=== PATIENT | male | born 1945 | race Hispanic/Latino ===

== ENCOUNTER 2017-11-19 06:27 | Day surgery (SDC) | payer MEDICARE, BC ==
[2017-11-18 12:17] VITALS: BMI 26.4
[~2017-11-19 06:27] MED LIST: Cyclopentolate 1% Opth Drop 2 ML BOT FS SCH; EPINEPHrine 0.3 MG, Dextrose 50% 3 ML in Ophthalmic Irrigation Solution 500 ML FS SCH; Phenylephrine 2.5% Ophth Soln 5 ML BOT FS SCH
[2017-11-19] MEDS ORDERED: Phenylephrine 2.5% Ophth Soln 5 ML BOT ONE (07:07)
[2017-11-19] MEDS ORDERED: Cyclopentolate 1% Opth Drop 2 ML BOT ONE (07:07)
[2017-11-19] MEDS ORDERED: Midazolam HCl 2 mg/2 ml Vial ONE (08:10)
[2017-11-19] MEDS ORDERED: Ondansetron HCl/PF 4 MG/2 ML Vial ONE ×2 (08:10→17:03)
[2017-11-19] MEDS ORDERED: Diprivan 20 ML ONE (08:10)
--- NOTE | 2017-11-19 09:09 | OP ---
DATE OF PROCEDURE: 11/19/2017 PREOPERATIVE DIAGNOSIS: Diabetic retinopathy and vitreous hemorrhage, left eye. POSTOPERATIVE DIAGNOSIS: Diabetic retinopathy and vitreous hemorrhage, left eye. PROCEDURE: Pars plana vitrectomy and membrane peel, panretinal photocoagulation, left eye. SURGEON: Dr. Wayne Crawford ANESTHESIA: Local with monitored anesthesia care. PROCEDURE IN DETAIL: The patient was identified in the preoperative holding area. Appropriate infor med consent for the planned surgical procedure on the left eye had been obtained. The patient was tr ansported to the operative suite where appropriate cardiopulmonary monitoring was established. Local anesthesia was obtained using retrobulbar and modified Van Lint lid block using 50/50 mixture of 4% lidocaine and 0.75% bupivacaine. The patient was prepped and draped in the usual sterile manner for ophthalmic surgery on the left eye. Lid speculum was placed in the left eye. The 25-gauge trocars w ere placed in conjunctiva and sclera supratemporally, inferotemporally, and supranasally. Infusion l ine was placed inferotemporally. Light pipe and vitreous cutter were inserted into the eye. Core of vitrectomy was performed. Posterior hyaloid membranes were noticed on the posterior hyaloid face. These were elevated using end-gripping forceps and peeled across the macula without complications. P an retinal photocoagulation was placed into all non-macular areas of the retina. No holes, breaks or tears were identified. Trocars were removed and eye was noted to retain pressure well. Retrobulbar Kenalog and subconjunctival Ancef were placed. Atropine and antibiotic ointment were placed, and th e eye was patched and shielded. The patient was taken to the postoperative recovery unit in good con dition having suffered no immediate perioperative complications. DISCHARGE INSTRUCTIONS: The patient was instructed to keep patch and shield on, avoid lifting or akila ding, and follow up in the morning with Dr. Crawford.
[2017-11-19] MEDS ORDERED: Propofol 200 MG/20 ML VIAL ONE (17:03)
== END 2017-11-19 09:33 | disposition home or self-care (01) ==
LOC: SDC 06:27
PROVIDERS: ATTEND Ophthalmology Retina Specialist
PROC: 08B53ZZ Excision of Left Vitreous, Percutaneous Approach (ICD-10-PCS; principal; 2017-11-19)
PROC: 08QF3ZZ Repair Left Retina, Percutaneous Approach (ICD-10-PCS; 2017-11-19)
PROC: 08NF3ZZ Release Left Retina, Percutaneous Approach (ICD-10-PCS; 2017-11-19)
DX: E11.319 Type 2 diabetes mellitus with unspecified diabetic retinopathy without macular edema (principal); H43.12 Vitreous hemorrhage, left eye; I25.10 Atherosclerotic heart disease of native coronary artery without angina pectoris; E78.5 Hyperlipidemia, unspecified; I11.0 Hypertensive heart disease with heart failure; I50.9 Heart failure, unspecified; I25.2 Old myocardial infarction; I73.9 Peripheral vascular disease, unspecified; Z88.5 Allergy status to narcotic agent; Z88.8 Allergy status to other drugs, medicaments and biological substances; Z79.82 Long term (current) use of aspirin; Z79.84 Long term (current) use of oral hypoglycemic drugs; Z79.899 Other long term (current) drug therapy
CPT/HCPCS: J0171; J2250; J2405; J2704

== ENCOUNTER 2019-02-07 12:06 | Outpatient (CLI) | payer MEDICARE, BC ==
--- NOTE | 2019-02-07 13:05 | ULT ---
RENAL SONOGRAM: HISTORY: Renal insufficiency. FINDINGS: The right kidney is 10.3 cm in length and has a normal appearance without hydronephrosis. The left k idney is 11.1 cm without hydronephrosis. A lobular, exophytic cyst from the mid portion of the kidne y measures up to 1.1 cm. The urinary bladder has a normal appearance. IMPRESSION: 1. No evidence of urinary tract obstruction. 2. Small left renal cyst. POS: CET
== END 2019-02-07 12:07 | disposition home or self-care (01) ==
LOC: BICULT 12:06
PROVIDERS: ATTEND Internal Medicine Nephrology
DX: N18.4 Chronic kidney disease, stage 4 (severe) (principal); N28.1 Cyst of kidney, acquired
CPT/HCPCS: 76770

== ENCOUNTER 2021-10-04 02:09 | Observation (INO) | payer MEDICARE, BC ==
[2021-10-04 03:18] LABS: #Eosinphils 0.1 thou/uL (0.0-0.7); #Lymphocytes 0.9 thou/uL (1.20-3.40); #Monocytes 0.4 thou/uL (0.11-0.59); #Neutrophils 6.6 thou/uL (1.40-6.50); %Basophils 0.2 % (0.0-1.0); %Eosinophils 1.2 % (0.0-10.0); %Lymphocytes 11.6 % (21.0-51.0); %Monocytes 4.8 % (0.0-10.0); %Neutrophils 82.3 % (42.0-75.0); Hemoglobin 12.7 g/dL (14.0-18.0); Mean Corpuscular HGB CONC 32.6 g/dL (32.0-36.0); Mean Corpuscular Hemoglobin 30.6 pg (27.0-31.0); Mean Corpuscular Volume 93.9 fL (78.0-98.0); Mean Platelet Volume 8.4 fL (7.4-10.4); Platelet Count 118 thou/uL (130-400); RBC Distribution Width 13.8 % (11.5-14.5); Red Blood Cell (RBC) Count 4.15 mill/uL (4.70-6.10)
[2021-10-04 03:38] LABS: ALT (SGPT) Less than 7 U/L (8-55); AST (SGOT) 11 U/L (5-34); Albumin 3.9 g/dL (3.4-4.8); Alkaline Phosphatase 60 U/L (40-110); Anion Gap 15 mmol/L (10-20); BUN (Urea Nitrogen) 33 mg/dL (8.4-25.7); Bilirubin, Total 0.8 mg/dL (0.2-1.2); Calc. Creatinine Clearance 0 mL/min (70-130); Calcium 10.3 mg/dL (7.8-10.44); Carbon Dioxide 23 mmol/L (23-31); Chloride 105 mmol/L (98-107); Glucose 189 mg/dL (83-110); Platelet Morphology Comment Appears Decreased; Potassium 4.1 mmol/L (3.5-5.1); Protein, Total 6.9 g/dL (5.8-8.1); RBC Morphology NORMAL; Sodium 139 mmol/L (136-145)
[2021-10-04 03:51] LABS: Bacteria/HPF None Seen HPF (None Seen); Bilirubin Negative (Negative); Blood, Urine Negative (Negative); Clarity Clear (Clear); Glucose, Urine (Dipstick) 100 mg/dL (Negative); Ketone, Urine Trace mg/dL (Negative); Leukocyte Negative Leu/uL (Negative); Nitrite Negative (Negative); Protein, Urine (Dipstick) 200 mg/dL (Neg-Trace); RBC/HPF 0-3 HPF (0-3); Specific Gravity, Urine 1.018 (1.002-1.036); Squamous Epithelial None Seen HPF (0-3); Urobilinogen Normal mg/dL (Less than 2); WBC/HPF 0-3 HPF (0-3); pH, Urine 5.5 (5.0-9.0)
[2021-10-04 04:38] LABS: SARS-CoV-2 NAA Rapid Test Not Detected (NotDetected)
[2021-10-04] MEDS ORDERED: Ondansetron PF 4 MG/2 ML Vial IVP PRN (05:03)
[2021-10-04] MEDS ORDERED: Ondansetron ODT 4 MG TAB PO PRN (05:03)
[2021-10-04] MEDS ORDERED: Dextrose 50% Abboject 50 ML SYRINGE SLOW IVP PRN (05:03)
[2021-10-04] MEDS ORDERED: HumaLOG 300 UNITS/3 ML VIAL SC PRN ×2 (05:03)
[2021-10-04] MEDS ORDERED: Acetaminophen 325 MG TAB PO PRN (05:03)
[2021-10-04] MEDS ORDERED: Dextrose 5% in Water 1,000 ML IV PRN (05:03)
[2021-10-04] MEDS ORDERED: Acetaminophen 650 MG Suppository PR PRN (05:03)
[2021-10-04] MEDS ORDERED: Labetalol HCl 100 MG/20 ML VIAL SLOW IVP PRN (05:07)
[2021-10-04] MEDS ORDERED: Aspirin 81 mg Enteric Coated Tablet PO SCH (09:00)
[2021-10-04] MEDS: hydrALAZINE 25 MG TAB PO SCH ×2 (16:19→21:24)
[2021-10-04] MEDS ORDERED: Atorvastatin Calcium 40 MG TAB PO SCH (21:00)
[2021-10-04] MEDS: Carvedilol 25 MG TAB PO SCH (21:24)
[2021-10-05 04:47] LABS: #Lymphocytes 1.2 thou/uL (1.20-3.40); #Monocytes 0.4 thou/uL (0.11-0.59); #Neutrophils 5.3 thou/uL (1.40-6.50); %Basophils 0.4 % (0.0-1.0); %Eosinophils 0.6 % (0.0-10.0); %Lymphocytes 17.5 % (21.0-51.0); %Monocytes 5.4 % (0.0-10.0); %Neutrophils 76.1 % (42.0-75.0); Hemoglobin 11.9 g/dL (14.0-18.0); Mean Corpuscular HGB CONC 33.5 g/dL (32.0-36.0); Mean Corpuscular Hemoglobin 30.8 pg (27.0-31.0); Mean Platelet Volume 8.5 fL (7.4-10.4); Platelet Count 115 thou/uL (130-400); RBC Distribution Width 14.2 % (11.5-14.5); Red Blood Cell (RBC) Count 3.87 mill/uL (4.70-6.10)
[2021-10-05 05:09] LABS: Anion Gap 12 mmol/L (10-20); BUN (Urea Nitrogen) 32 mg/dL (8.4-25.7); Calc. Creatinine Clearance 18 mL/min (70-130); Calcium 9.9 mg/dL (7.8-10.44); Carbon Dioxide 25 mmol/L (23-31); Cardiac Risk 3.3 (Less than 4.5); Chloride 104 mmol/L (98-107); Cholesterol 118 mg/dl (< 200 Desired); Glucose 161 mg/dL (83-110); HDL Cholesterol 36 mg/dL (>60 Neg Risk); LDL Cholesterol, Calculated 67 mg/dL; Potassium 4.1 mmol/L (3.5-5.1); Sodium 137 mmol/L (136-145); Triglycerides 77 mg/dL (Less than 150)
[2021-10-05] MEDS ORDERED: Ferrous Sulfate 325 MG TAB PO SCH (08:00)
[2021-10-05] MEDS: hydrALAZINE 25 MG TAB PO SCH ×2 (08:31→14:50)
[2021-10-05] MEDS: Carvedilol 25 MG TAB PO SCH (08:32)
[2021-10-05] MEDS ORDERED: Aspirin 81 mg Enteric Coated Tablet PO SCH (09:00)
[2021-10-05] MEDS ORDERED: Alogliptin 6.25 MG TAB PO SCH (09:00)
[2021-10-05] MEDS ORDERED: Ascorbic Acid 500 mg Chewable Tablet PO SCH (09:00)
[2021-10-05] MEDS ORDERED: Amlodipine 5 MG TAB PO SCH (09:00)
[2021-10-05 11:35] VITALS: TEMP 98.6
[2021-10-05 14:51] VITALS: BP 162/70
== END 2021-10-05 15:36 | disposition home or self-care (01) ==
LOC: ERS 02:09 → 2NO 04:39
PROVIDERS: ADMIT Student in an Organized Health Care Education/Training Program; ATTEND Family Medicine
DX: R51.9 Headache, unspecified (principal); R42 Dizziness and giddiness; R41.82 Altered mental status, unspecified; I25.10 Atherosclerotic heart disease of native coronary artery without angina pectoris; I13.0 Hypertensive heart and chronic kidney disease with heart failure and stage 1 through stage 4 chronic kidney disease, or unspecified chronic kidney disease; E11.22 Type 2 diabetes mellitus with diabetic chronic kidney disease; N18.30 Chronic kidney disease, stage 3 unspecified; I50.23 Acute on chronic systolic (congestive) heart failure; D63.1 Anemia in chronic kidney disease; I70.269 Atherosclerosis of native arteries of extremities with gangrene, unspecified extremity; I25.2 Old myocardial infarction; I42.9 Cardiomyopathy, unspecified; E78.00 Pure hypercholesterolemia, unspecified; E78.5 Hyperlipidemia, unspecified; I08.1 Rheumatic disorders of both mitral and tricuspid valves; J32.0 Chronic maxillary sinusitis; Z79.82 Long term (current) use of aspirin; Z79.84 Long term (current) use of oral hypoglycemic drugs; Z79.899 Other long term (current) drug therapy; Z88.5 Allergy status to narcotic agent; Z95.1 Presence of aortocoronary bypass graft; Z95.810 Presence of automatic (implantable) cardiac defibrillator; Z89.511 Acquired absence of right leg below knee; Z89.512 Acquired absence of left leg below knee; Z20.822 Contact with and (suspected) exposure to COVID-19
CPT/HCPCS: 70450 ×2; 71045; 80048; 80053; 80061; 82962 ×2; 85025 ×2; 87086; 93005; 93306; 93880; 95712; 95819; 95957; 97139 ×4; U0002; 36415; 36416; 81003; 81015; 96374; G0378; J1815

== ENCOUNTER 2023-01-16 09:39 | Inpatient (IN) | payer MEDICARE, BC ==
[2023-01-16 10:04] LABS: #Basophils 0.1 thou/uL (0.0-0.2); #Lymphocytes 1.3 thou/uL (1.20-3.40); #Monocytes 0.6 thou/uL (0.11-0.59); #Neutrophils 9.6 thou/uL (1.40-6.50); %Basophils 0.5 % (0.0-1.0); %Eosinophils 0.4 % (0.0-10.0); %Lymphocytes 10.9 % (21.0-51.0); %Monocytes 4.9 % (0.0-10.0); %Neutrophils 83.3 % (42.0-75.0); Hemoglobin 10.9 g/dL (14.0-18.0); Mean Corpuscular HGB CONC 33.6 g/dL (32.0-36.0); Mean Corpuscular Hemoglobin 33.4 pg (27.0-31.0); Mean Corpuscular Volume 99.5 fl (78.0-98.0); Mean Platelet Volume 8.8 fL (7.4-10.4); Platelet Count 123 10x3/uL (130-400); RBC Distribution Width 13.2 % (11.5-14.5); Red Blood Cell (RBC) Count 3.25 mill/uL (4.70-6.10); White Blood Cell (WBC) Count 11.6 10x3/uL (4.8-10.8)
[2023-01-16 10:30] LABS: ALT (SGPT) 9 U/L (8-55); AST (SGOT) 17 U/L (5-34); Albumin 4.3 g/dL (3.4-4.8); Alkaline Phosphatase 58 U/L (40-110); Anion Gap 19 mmol/L (10-20); BUN (Urea Nitrogen) 57 mg/dL (8.4-25.7); Bilirubin, Total 0.8 mg/dL (0.2-1.2); Calc. Creatinine Clearance 0 mL/min (70-130); Calcium 11.1 mg/dL (7.8-10.44); Carbon Dioxide 22 mmol/L (23-31); Chloride 101 mmol/L (98-107); Estimated GFR 12; Globulin 2.9 g/dL (2.4-3.5); Glucose 170 mg/dL (83-110); Protein, Total 7.2 g/dL (5.8-8.1); Sodium 138 mmol/L (136-145)
[2023-01-16] MEDS ORDERED: Ondansetron PF 4 MG/2 ML Vial ONE (10:37)
[2023-01-16 13:30] LABS: CKMB 2.3 ng/mL (0-6.6)
[2023-01-16] MEDS ORDERED: Aspirin Chewable 81 MG TAB ONE (15:02)
[2023-01-16 15:51] LABS: Bacteria/HPF 2+ HPF (None Seen); Bilirubin Negative (Negative); Blood, Urine 1+ (Negative); Clarity Clear (Clear); Glucose, Urine (Dipstick) 70 mg/dL (Negative); Ketone, Urine Negative (Negative); Leukocyte Negative Leu/uL (Negative); Nitrite Negative (Negative); Protein, Urine (Dipstick) 100 mg/dL (Neg-Trace); RBC/HPF 21-50 HPF (0-3); Specific Gravity, Urine 1.013 (1.002-1.036); Squamous Epithelial 0-3 HPF (0-3); Urobilinogen Normal mg/dL (Less than 2); WBC/HPF 0-3 HPF (0-3); pH, Urine 5.5 (5.0-9.0)
[2023-01-16 16:56] LABS: Troponin I 0.127 ng/mL (< 0.028)
[2023-01-16] MEDS ORDERED: Ondansetron PF 4 MG/2 ML Vial IVP PRN (17:27)
[2023-01-16] MEDS ORDERED: Guaifenesin DM 100-10/5 ML UDCUP PO PRN (17:27)
[2023-01-16] MEDS ORDERED: Acetaminophen 650 MG Suppository PR PRN (17:27)
[2023-01-16] MEDS ORDERED: Ondansetron ODT 4 MG TAB PO PRN (17:27)
[2023-01-16] MEDS ORDERED: Senokot S 8.6-50 MG TAB PO PRN (17:27)
[2023-01-16 17:36] VITALS: BMI 18.8
[2023-01-16] MEDS ORDERED: CEFAZOLIN 1 GM in Sodium Chloride 0.9% 100 ML IVPB SCH (18:00)
[2023-01-16] MEDS ORDERED: EPOETIN ALFA-EPBX (ESRD) 10,000 UNITS/ML VIAL SC SCH (18:15)
[2023-01-16] MEDS: Sodium Chloride 0.9% 1,000 ML IV SCH (18:33)
[2023-01-16 19:37] LABS: Troponin I 0.141 ng/mL (< 0.028)
[2023-01-16] MEDS: Famotidine 20 MG TAB PO SCH (20:07)
[2023-01-16] MEDS: Atorvastatin Calcium 40 MG TAB PO SCH (20:07)
[2023-01-16] MEDS: hydrALAZINE 25 MG TAB PO SCH (20:07)
[2023-01-16] MEDS: Tamsulosin HCl 0.4 MG CAP PO SCH (20:08)
[2023-01-16] MEDS: Heparin 5,000 UNITS/ML VIAL SC SCH (21:01)
[2023-01-16] MEDS: Acetaminophen 325 MG TAB PO PRN (22:32)
[2023-01-16] MEDS ORDERED: HumaLOG 300 UNITS/3 ML VIAL SC PRN ×2 (23:48)
[2023-01-16] MEDS ORDERED: Dextrose 5% in Water 1,000 ML IV PRN (23:48)
[2023-01-16] MEDS ORDERED: Dextrose 50% Abboject 50 ML SYRINGE SLOW IVP PRN (23:48)
[2023-01-17 04:59] LABS: #Lymphocytes 1.1 thou/uL (1.20-3.40); #Monocytes 0.9 thou/uL (0.11-0.59); #Neutrophils 9.5 thou/uL (1.40-6.50); %Basophils 0.2 % (0.0-1.0); %Eosinophils 0.1 % (0.0-10.0); %Lymphocytes 9.7 % (21.0-51.0); Hemoglobin 9.7 g/dL (14.0-18.0); Mean Corpuscular HGB CONC 34.5 g/dL (32.0-36.0); Mean Corpuscular Hemoglobin 34.8 pg (27.0-31.0); Mean Platelet Volume 9.4 fL (7.4-10.4); Platelet Count 106 10x3/uL (130-400); RBC Distribution Width 13.1 % (11.5-14.5); Red Blood Cell (RBC) Count 2.78 mill/uL (4.70-6.10); White Blood Cell (WBC) Count 11.6 10x3/uL (4.8-10.8)
[2023-01-17 05:16] LABS: Anion Gap 15 mmol/L (10-20); BUN (Urea Nitrogen) 57 mg/dL (8.4-25.7); Calc. Creatinine Clearance 9 mL/min (70-130); Carbon Dioxide 21 mmol/L (23-31); Chloride 104 mmol/L (98-107); Estimated GFR 12; Glucose 137 mg/dL (83-110); Potassium 3.8 mmol/L (3.5-5.1); Sodium 136 mmol/L (136-145)
[2023-01-17] MEDS ORDERED: Iopamidol 30 ML ONE (08:02)
[2023-01-17] MEDS ORDERED: Sodium Chloride 0.9% 0 ML ONE (08:11)
[2023-01-17] MEDS ORDERED: CEFAZOLIN 1 GM VIAL ONE (08:11)
[2023-01-17] MEDS ORDERED: fentaNYL 50 mcg/mL 1 mL Vial ONE (08:19)
[2023-01-17] MEDS ORDERED: Lidocaine 1% PF 5 ML VIAL ONE (08:32)
[2023-01-17] MEDS: Carvedilol 25 MG TAB PO SCH ×2 (10:29→17:16)
[2023-01-17] MEDS: hydrALAZINE 25 MG TAB PO SCH ×3 (10:29→20:35)
[2023-01-17] MEDS: Amlodipine 5 MG TAB PO SCH (10:30)
[2023-01-17] MEDS: Calcitriol 0.25 MCG CAP PO SCH (10:30)
[2023-01-17] MEDS: Aspirin 81 mg Enteric Coated Tablet PO SCH (10:30)
[2023-01-17] MEDS: Heparin 5,000 UNITS/ML VIAL SC SCH ×3 (10:33→20:35)
[2023-01-17] MEDS: Alogliptin 6.25 MG TAB PO SCH (10:39)
[2023-01-17] MEDS: Sodium Chloride 0.9% 1,000 ML IV SCH (12:44)
[2023-01-17] MEDS: Sodium Bicarbonate Tab 325 MG TAB PO SCH ×2 (15:13→20:34)
[2023-01-17] MEDS: Acetaminophen 325 MG TAB PO PRN (20:33)
[2023-01-17] MEDS: Famotidine 20 MG TAB PO SCH (20:34)
[2023-01-17] MEDS: Tamsulosin HCl 0.4 MG CAP PO SCH (20:34)
[2023-01-17] MEDS: Atorvastatin Calcium 40 MG TAB PO SCH (20:34)
[2023-01-18 08:52] LABS: #Eosinphils 0.1 thou/uL (0.0-0.7); #Lymphocytes 1.6 thou/uL (1.20-3.40); #Monocytes 0.7 thou/uL (0.11-0.59); #Neutrophils 4.1 thou/uL (1.40-6.50); %Basophils 0.2 % (0.0-1.0); %Lymphocytes 24.4 % (21.0-51.0); %Monocytes 10.5 % (0.0-10.0); %Neutrophils 63.9 % (42.0-75.0); Hemoglobin 8.7 g/dL (14.0-18.0); Mean Corpuscular HGB CONC 35.4 g/dL (32.0-36.0); Mean Corpuscular Hemoglobin 35.6 pg (27.0-31.0); Mean Platelet Volume 10.2 fL (7.4-10.4); Platelet Count 83 10x3/uL (130-400); RBC Distribution Width 12.8 % (11.5-14.5); Red Blood Cell (RBC) Count 2.45 mill/uL (4.70-6.10); White Blood Cell (WBC) Count 6.4 10x3/uL (4.8-10.8)
[2023-01-18] MEDS: Sodium Chloride 0.9% 1,000 ML IV SCH (09:03)
[2023-01-18 09:04] LABS: Albumin 2.9 g/dL (3.4-4.8); Anion Gap 15 mmol/L (10-20); BUN (Urea Nitrogen) 60 mg/dL (8.4-25.7); Calc. Creatinine Clearance 8 mL/min (70-130); Calcium 8.5 mg/dL (7.8-10.44); Carbon Dioxide 20 mmol/L (23-31); Chloride 105 mmol/L (98-107); Estimated GFR 11; Glucose 94 mg/dL (83-110); Iron 40 ug/dL (65-175); Iron Binding Capacity, Total 143 mcg/dL (261-462); Phosphorus 4.3 mg/dL (2.3-4.7); Potassium 3.8 mmol/L (3.5-5.1); Sodium 136 mmol/L (136-145)
[2023-01-18] MEDS: Calcitriol 0.25 MCG CAP PO SCH (09:05)
[2023-01-18] MEDS: Sodium Bicarbonate Tab 325 MG TAB PO SCH ×3 (09:05→19:57)
[2023-01-18] MEDS: hydrALAZINE 25 MG TAB PO SCH ×3 (09:05→19:58)
[2023-01-18] MEDS: Carvedilol 25 MG TAB PO SCH ×2 (09:05→17:35)
[2023-01-18] MEDS: Aspirin 81 mg Enteric Coated Tablet PO SCH (09:06)
[2023-01-18] MEDS: Alogliptin 6.25 MG TAB PO SCH (09:06)
[2023-01-18] MEDS: Amlodipine 5 MG TAB PO SCH (09:06)
[2023-01-18] MEDS: Heparin 5,000 UNITS/ML VIAL SC SCH (09:19)
[2023-01-18] MEDS: Lactated Ringer's 1,000 ML IV SCH ×2 (11:29→19:57)
[2023-01-18] MEDS: Famotidine 20 MG TAB PO SCH (19:58)
[2023-01-18] MEDS: Atorvastatin Calcium 40 MG TAB PO SCH (19:58)
[2023-01-18] MEDS: Tamsulosin HCl 0.4 MG CAP PO SCH (19:58)
[2023-01-18] MEDS: Acetaminophen 325 MG TAB PO PRN (20:02)
[2023-01-19 04:50] LABS: #Eosinphils 0.1 thou/uL (0.0-0.7); #Lymphocytes 1.3 thou/uL (1.20-3.40); #Monocytes 0.6 thou/uL (0.11-0.59); %Basophils 0.5 % (0.0-1.0); %Eosinophils 1.4 % (0.0-10.0); %Lymphocytes 21.5 % (21.0-51.0); %Monocytes 10.3 % (0.0-10.0); %Neutrophils 67.7 % (42.0-75.0); Hemoglobin 8.6 g/dL (14.0-18.0); Mean Corpuscular Hemoglobin 33.5 pg (27.0-31.0); Mean Corpuscular Volume 98.2 fl (78.0-98.0); Mean Platelet Volume 9.1 fL (7.4-10.4); Platelet Count 97 10x3/uL (130-400); RBC Distribution Width 12.7 % (11.5-14.5); Red Blood Cell (RBC) Count 2.57 mill/uL (4.70-6.10)
[2023-01-19 05:09] LABS: Anion Gap 13 mmol/L (10-20); BUN (Urea Nitrogen) 57 mg/dL (8.4-25.7); BUN/Creatinine Ratio 12.26; Calc. Creatinine Clearance 9 mL/min (70-130); Calcium 8.9 mg/dL (7.8-10.44); Carbon Dioxide 23 mmol/L (23-31); Chloride 103 mmol/L (98-107); Estimated GFR 12; Glucose 107 mg/dL (83-110); Phosphorus 3.4 mg/dL (2.3-4.7); Potassium 3.7 mmol/L (3.5-5.1); Sodium 135 mmol/L (136-145)
[2023-01-19] MEDS: Lactated Ringer's 1,000 ML IV SCH ×2 (06:01→15:40)
[2023-01-19] MEDS: Sodium Bicarbonate Tab 325 MG TAB PO SCH ×3 (08:52→20:13)
[2023-01-19] MEDS: Acetaminophen 325 MG TAB PO PRN ×2 (08:52→20:15)
[2023-01-19] MEDS: Alogliptin 6.25 MG TAB PO SCH (08:52)
[2023-01-19] MEDS: hydrALAZINE 25 MG TAB PO SCH ×3 (08:53→20:14)
[2023-01-19] MEDS: Carvedilol 25 MG TAB PO SCH ×2 (08:54→16:17)
[2023-01-19] MEDS: Amlodipine 5 MG TAB PO SCH (08:54)
[2023-01-19] MEDS: Calcitriol 0.25 MCG CAP PO SCH (08:54)
[2023-01-19] MEDS: Tamsulosin HCl 0.4 MG CAP PO SCH (20:14)
[2023-01-19] MEDS: Famotidine 20 MG TAB PO SCH (20:14)
[2023-01-19] MEDS: Atorvastatin Calcium 40 MG TAB PO SCH (20:15)
[2023-01-20] MEDS: Lactated Ringer's 1,000 ML IV SCH ×4 (00:42→20:17)
[2023-01-20 06:04] LABS: ALT (SGPT) Less than 7 U/L (8-55); AST (SGOT) 9 U/L (5-34); Albumin 2.8 g/dL (3.4-4.8); Alkaline Phosphatase 39 U/L (40-110); Anion Gap 11 mmol/L (10-20); BUN (Urea Nitrogen) 49 mg/dL (8.4-25.7); Bilirubin, Total 0.3 mg/dL (0.2-1.2); Calc. Creatinine Clearance 10 mL/min (70-130); Calcium 9.2 mg/dL (7.8-10.44); Carbon Dioxide 24 mmol/L (23-31); Chloride 106 mmol/L (98-107); Estimated GFR 14; Globulin 2.1 g/dL (2.4-3.5); Glucose 107 mg/dL (83-110); Potassium 3.5 mmol/L (3.5-5.1); Protein, Total 4.9 g/dL (5.8-8.1); Sodium 137 mmol/L (136-145)
[2023-01-20 06:11] LABS: #Basophils 0.1 thou/uL (0.0-0.2); #Eosinphils 0.1 thou/uL (0.0-0.7); #Lymphocytes 1.1 thou/uL (1.20-3.40); #Monocytes 0.5 thou/uL (0.11-0.59); #Neutrophils 3.1 thou/uL (1.40-6.50); %Basophils 1.3 % (0.0-1.0); %Eosinophils 2.7 % (0.0-10.0); %Lymphocytes 22.5 % (21.0-51.0); %Monocytes 10.8 % (0.0-10.0); %Neutrophils 62.7 % (42.0-75.0); Hemoglobin 8.5 g/dL (14.0-18.0); Mean Corpuscular HGB CONC 33.4 g/dL (32.0-36.0); Mean Corpuscular Hemoglobin 33.1 pg (27.0-31.0); Mean Platelet Volume 8.8 fL (7.4-10.4); Platelet Count 109 10x3/uL (130-400); RBC Distribution Width 12.8 % (11.5-14.5); Red Blood Cell (RBC) Count 2.57 mill/uL (4.70-6.10)
[2023-01-20] MEDS: Calcitriol 0.25 MCG CAP PO SCH (10:22)
[2023-01-20] MEDS: hydrALAZINE 25 MG TAB PO SCH ×3 (10:23→20:16)
[2023-01-20] MEDS: Sodium Bicarbonate Tab 325 MG TAB PO SCH ×3 (10:24→20:16)
[2023-01-20] MEDS: Carvedilol 25 MG TAB PO SCH ×2 (10:24→19:07)
[2023-01-20] MEDS: Amlodipine 5 MG TAB PO SCH (10:24)
[2023-01-20] MEDS: Alogliptin 6.25 MG TAB PO SCH (10:55)
[2023-01-20] MEDS: Famotidine 20 MG TAB PO SCH (20:16)
[2023-01-20] MEDS: Tamsulosin HCl 0.4 MG CAP PO SCH (20:16)
[2023-01-20] MEDS: Atorvastatin Calcium 40 MG TAB PO SCH (20:16)
[2023-01-20] MEDS: Acetaminophen 325 MG TAB PO PRN (20:17)
[2023-01-21 05:03] LABS: #Eosinphils 0.2 thou/uL (0.0-0.7); #Lymphocytes 1.2 thou/uL (1.20-3.40); #Monocytes 0.5 thou/uL (0.11-0.59); #Neutrophils 3.6 thou/uL (1.40-6.50); %Basophils 0.4 % (0.0-1.0); %Eosinophils 2.8 % (0.0-10.0); %Lymphocytes 22.5 % (21.0-51.0); %Monocytes 8.9 % (0.0-10.0); %Neutrophils 65.4 % (42.0-75.0); Hemoglobin 8.7 g/dL (14.0-18.0); Mean Corpuscular HGB CONC 34.8 g/dL (32.0-36.0); Mean Corpuscular Hemoglobin 34.5 pg (27.0-31.0); Mean Corpuscular Volume 99.1 fl (78.0-98.0); Mean Platelet Volume 8.4 fL (7.4-10.4); Platelet Count 131 10x3/uL (130-400); Red Blood Cell (RBC) Count 2.52 mill/uL (4.70-6.10); White Blood Cell (WBC) Count 5.5 10x3/uL (4.8-10.8)
[2023-01-21 05:20] LABS: Anion Gap 10 mmol/L (10-20); BUN (Urea Nitrogen) 42 mg/dL (8.4-25.7); Calc. Creatinine Clearance 11 mL/min (70-130); Calcium 9.1 mg/dL (7.8-10.44); Carbon Dioxide 26 mmol/L (23-31); Chloride 107 mmol/L (98-107); Estimated GFR 16; Glucose 114 mg/dL (83-110); Potassium 3.6 mmol/L (3.5-5.1); Sodium 139 mmol/L (136-145)
[2023-01-21] MEDS: Lactated Ringer's 1,000 ML IV SCH (07:13)
[2023-01-21] MEDS ORDERED: Cipro 250 MG TAB PO SCH ×2 (08:00→20:00)
[2023-01-21] MEDS: Sodium Bicarbonate Tab 325 MG TAB PO SCH ×2 (08:36→15:25)
[2023-01-21] MEDS: Calcitriol 0.25 MCG CAP PO SCH (08:36)
[2023-01-21] MEDS: hydrALAZINE 25 MG TAB PO SCH ×2 (08:37→15:25)
[2023-01-21] MEDS: Carvedilol 25 MG TAB PO SCH (08:37)
[2023-01-21] MEDS: Alogliptin 6.25 MG TAB PO SCH (08:37)
[2023-01-21] MEDS: Amlodipine 5 MG TAB PO SCH (08:37)
[2023-01-21 11:44] VITALS: TEMP 97.8
[2023-01-21 14:53] VITALS: BP 176/74
[2023-01-21] MEDS ORDERED: Ciprofloxacin 500 MG TAB PO SCH (20:00)
== END 2023-01-21 15:37 | disposition home or self-care (01) | DRG 659 ==
LOC: ERS 09:39 → 2NO 15:41
PROVIDERS: ADMIT Hospitalist; ATTEND Hospitalist
PROC: 0T768DZ Dilation of Right Ureter with Intraluminal Device, Via Natural or Artificial Opening Endoscopic (ICD-10-PCS; principal; 2023-01-17)
PROC: BT1DZZZ Fluoroscopy of Right Kidney, Ureter and Bladder (ICD-10-PCS; 2023-01-17)
DX: N13.2 Hydronephrosis with renal and ureteral calculous obstruction (principal); I21.A1 Myocardial infarction type 2; I13.0 Hypertensive heart and chronic kidney disease with heart failure and stage 1 through stage 4 chronic kidney disease, or unspecified chronic kidney disease; I50.22 Chronic systolic (congestive) heart failure; E87.20 Acidosis, unspecified; K80.11 Calculus of gallbladder with chronic cholecystitis with obstruction; N17.9 Acute kidney failure, unspecified; Z66 Do not resuscitate; Z51.5 Encounter for palliative care; I25.10 Atherosclerotic heart disease of native coronary artery without angina pectoris; N18.4 Chronic kidney disease, stage 4 (severe); E11.22 Type 2 diabetes mellitus with diabetic chronic kidney disease; D63.1 Anemia in chronic kidney disease; E11.319 Type 2 diabetes mellitus with unspecified diabetic retinopathy without macular edema; E11.51 Type 2 diabetes mellitus with diabetic peripheral angiopathy without gangrene; E86.9 Volume depletion, unspecified; Z88.5 Allergy status to narcotic agent; Z79.82 Long term (current) use of aspirin; Z79.899 Other long term (current) drug therapy; Z89.512 Acquired absence of left leg below knee; Z89.511 Acquired absence of right leg below knee; Z95.810 Presence of automatic (implantable) cardiac defibrillator
CPT/HCPCS: 36415; 36416; 51701; 74176; 74420; 76705; 80048; 80053; 80069; 81003; 81015; 82553; 82728; 83540; 83550; 83690; 84484; 85025; 93005; 96374; C2617; J0690; J1644; J1815; J2405; J3010; J3490; J7050; J7120; Q5105; Q9967

== ENCOUNTER 2023-01-28 08:05 | Outpatient (CLI) | payer MEDICARE, BC ==
[2023-01-28 10:38] LABS: Hemoglobin 9.3 g/dL (13.5-17.5); Mean Corpuscular HGB CONC 32.6 g/dL (32.0-36.0); Mean Corpuscular Hemoglobin 31.8 pg (27.0-33.0); Mean Corpuscular Volume 97.6 fl (81.2-95.1); Mean Platelet Volume 10.2 fl (7.4-10.4); Platelet Count 165 10x3/uL (150-450); RBC Distribution Width 14.8 % (11.5-14.5); Red Blood Cell (RBC) Count 2.92 10x6/uL (4.32-5.72); White Blood Cell (WBC) Count 7.3 10x3/uL (3.5-10.5)
[2023-01-28 10:43] LABS: INR-International Normal Ratio 1.1; PTT 28.2 sec (22.0-33.0); Prothrombin Time 11.9 sec (9.5-12.1)
[2023-01-28 10:45] LABS: Anion Gap 15 mmol/L (10-20); BUN (Urea Nitrogen) 31 mg/dL (8.4-25.7); Calc. Creatinine Clearance 0 mL/min (70-130); Calcium 9.9 mg/dL (7.8-10.44); Carbon Dioxide 24 mmol/L (23-31); Chloride 104 mmol/L (98-107); Estimated GFR 14; Glucose 97 mg/dL (83-110); Potassium 4.2 mmol/L (3.5-5.1); Sodium 139 mmol/L (136-145)
== END 2023-01-28 08:06 | disposition home or self-care (01) ==
LOC: LABBT 08:05
PROVIDERS: ATTEND Urology
DX: Z01.812 Encounter for preprocedural laboratory examination (principal); N20.1 Calculus of ureter
CPT/HCPCS: 80048; 85027; 85610; 85730; 87086

== ENCOUNTER 2023-02-02 06:12 | Day surgery (SDC) | payer MEDICARE, BC ==
[2023-01-28 08:44] VITALS: BMI 22.1
[2023-02-02] MEDS ORDERED: Iopamidol 15 ML ONE (08:32)
[2023-02-02] MEDS ORDERED: Famotidine/PF 20 mg/2ml Vial ONE (08:35)
[2023-02-02] MEDS ORDERED: Vasopressin 20 UNITS/ML VIAL ONE (08:35)
[2023-02-02] MEDS ORDERED: fentaNYL 50 mcg/mL 1 mL Vial ONE ×2 (08:35)
[2023-02-02] MEDS ORDERED: Ondansetron PF 4 MG/2 ML Vial ONE (08:55)
[2023-02-02] MEDS ORDERED: Rocuronium Bromide 10 MG/ML (10ML VIAL) ONE (08:55)
[2023-02-02] MEDS ORDERED: Lidocaine 1% PF 5 ML VIAL ONE (08:55)
[2023-02-02] MEDS ORDERED: NEOSTIGMINE 3 MG/3 ML SYR 3 MG/3 ML SYRINGE ONE (08:55)
[2023-02-02] MEDS ORDERED: PROPOFOL 200 MG/20 ML VIAL ONE (08:55)
[2023-02-02] MEDS ORDERED: Glycopyrrolate 0.2 MG/ML 5 ML SYRINGE ONE (08:55)
[2023-02-02] MEDS ORDERED: PHENYLEPHRINE-NS 100 MCG/ML 10 ML SYRINGE ONE (08:55)
[2023-02-02] MEDS ORDERED: Furosemide 20 MG/2 ML VIAL ONE (14:45)
== END 2023-02-02 18:11 | disposition home or self-care (01) ==
LOC: SDC 06:12
PROVIDERS: ATTEND Urology
PROC: 0TC68ZZ Extirpation of Matter from Right Ureter, Via Natural or Artificial Opening Endoscopic (ICD-10-PCS; principal; 2023-02-02)
PROC: 0T768DZ Dilation of Right Ureter with Intraluminal Device, Via Natural or Artificial Opening Endoscopic (ICD-10-PCS; 2023-02-02)
DX: N20.1 Calculus of ureter (principal); I13.0 Hypertensive heart and chronic kidney disease with heart failure and stage 1 through stage 4 chronic kidney disease, or unspecified chronic kidney disease; E11.22 Type 2 diabetes mellitus with diabetic chronic kidney disease; N18.30 Chronic kidney disease, stage 3 unspecified; I50.9 Heart failure, unspecified; I25.10 Atherosclerotic heart disease of native coronary artery without angina pectoris; I25.2 Old myocardial infarction; E78.5 Hyperlipidemia, unspecified; I42.9 Cardiomyopathy, unspecified; Z79.82 Long term (current) use of aspirin; Z79.84 Long term (current) use of oral hypoglycemic drugs; Z79.899 Other long term (current) drug therapy; Z88.5 Allergy status to narcotic agent; Z95.1 Presence of aortocoronary bypass graft; Z95.810 Presence of automatic (implantable) cardiac defibrillator; Z89.511 Acquired absence of right leg below knee; Z89.512 Acquired absence of left leg below knee
CPT/HCPCS: 52356; 74420; 82365; J3010; 88300; C1747; C2617; J1940; J1956; J2405; J2704; Q9967; S0028

== ENCOUNTER 2023-02-05 21:29 | Emergency (ER) | payer MEDICARE, BC ==
[2023-02-05 23:11] LABS: #Eosinphils 0.1 thou/uL (0.0-0.7); #Monocytes 0.7 thou/uL (0.11-0.59); #Neutrophils 7.5 thou/uL (1.40-6.50); %Basophils 0.2 % (0.0-1.0); %Eosinophils 1.4 % (0.0-10.0); %Lymphocytes 8.2 % (21.0-51.0); %Monocytes 7.7 % (0.0-10.0); %Neutrophils 82.1 % (42.0-75.0); Hemoglobin 9.5 g/dL (14.0-18.0); Mean Corpuscular HGB CONC 33.3 g/dL (32.0-36.0); Platelet Count 127 10x3/uL (130-400); RBC Distribution Width 14.1 % (11.5-14.5); Red Blood Cell (RBC) Count 2.97 mill/uL (4.70-6.10); White Blood Cell (WBC) Count 9.1 10x3/uL (4.8-10.8)
[2023-02-05 23:36] LABS: ALT (SGPT) Less than 7 U/L (8-55); AST (SGOT) 15 U/L (5-34); Albumin 3.7 g/dL (3.4-4.8); Alkaline Phosphatase 58 U/L (40-110); Anion Gap 15 mmol/L (10-20); BUN (Urea Nitrogen) 33 mg/dL (8.4-25.7); Bilirubin, Total 0.6 mg/dL (0.2-1.2); Calc. Creatinine Clearance 0 mL/min (70-130); Carbon Dioxide 23 mmol/L (23-31); Chloride 103 mmol/L (98-107); Estimated GFR 14; Globulin 2.6 g/dL (2.4-3.5); Glucose 176 mg/dL (83-110); Lipase 39 U/L (8-78); Protein, Total 6.3 g/dL (5.8-8.1); Sodium 137 mmol/L (136-145)
[2023-02-05 23:58] LABS: CKMB 1.4 ng/mL (0-6.6)
[2023-02-06 02:19] LABS: Bacteria/HPF None Seen HPF (None Seen); Bilirubin Negative (Negative); Blood, Urine 3+ (Negative); Clarity Clear (Clear); Glucose, Urine (Dipstick) 70 mg/dL (Negative); Ketone, Urine Negative (Negative); Leukocyte 500 Leu/uL (Negative); Nitrite Negative (Negative); Protein, Urine (Dipstick) 50 mg/dL (Neg-Trace); RBC/HPF Greater than 50 HPF (0-3); Squamous Epithelial None Seen HPF (0-3); Urobilinogen Normal mg/dL (Less than 2); pH, Urine 6.5 (5.0-9.0)
== END 2023-02-06 04:48 | disposition home or self-care (01) ==
LOC: ERS 21:29
DX: R33.9 Retention of urine, unspecified (principal); K59.00 Constipation, unspecified; I12.0 Hypertensive chronic kidney disease with stage 5 chronic kidney disease or end stage renal disease; E11.22 Type 2 diabetes mellitus with diabetic chronic kidney disease; N18.6 End stage renal disease; D64.9 Anemia, unspecified; Z79.82 Long term (current) use of aspirin; Z79.899 Other long term (current) drug therapy; Z79.84 Long term (current) use of oral hypoglycemic drugs
CPT/HCPCS: 36415; 51702; 74176; 81003; 81015; 82553; 83690; 84484; 93005

== ENCOUNTER 2023-02-06 15:49 | Inpatient (IN) | payer MEDICARE, BC ==
[2023-02-06 16:40] LABS: #Monocytes 0.6 thou/uL (0.11-0.59); #Neutrophils 7.2 thou/uL (1.40-6.50); %Basophils 0.2 % (0.0-1.0); %Monocytes 6.4 % (0.0-10.0); %Neutrophils 82.9 % (42.0-75.0); Mean Corpuscular HGB CONC 33.2 g/dL (32.0-36.0); Mean Corpuscular Hemoglobin 31.9 pg (27.0-31.0); Mean Corpuscular Volume 96.1 fl (78.0-98.0); Mean Platelet Volume 11.1 fL (7.4-10.4); Platelet Count 123 10x3/uL (130-400); RBC Distribution Width 14.1 % (11.5-14.5); Red Blood Cell (RBC) Count 2.82 mill/uL (4.70-6.10); White Blood Cell (WBC) Count 8.7 10x3/uL (4.8-10.8)
[2023-02-06 16:57] LABS: INR-International Normal Ratio 1.2; PTT 34.1 sec (22.9-36.1); Prothrombin Time 15.5 sec (12.0-14.7)
[2023-02-06 17:12] LABS: ALT (SGPT) Less than 7 U/L (8-55); AST (SGOT) 16 U/L (5-34); Albumin 3.6 g/dL (3.4-4.8); Alkaline Phosphatase 61 U/L (40-110); Anion Gap 16 mmol/L (10-20); BUN (Urea Nitrogen) 34 mg/dL (8.4-25.7); Bilirubin, Total 0.7 mg/dL (0.2-1.2); Calc. Creatinine Clearance 0 mL/min (70-130); Calcium 10.1 mg/dL (7.8-10.44); Carbon Dioxide 24 mmol/L (23-31); Chloride 102 mmol/L (98-107); Estimated GFR 13; Globulin 2.5 g/dL (2.4-3.5); Glucose 170 mg/dL (83-110); Potassium 3.7 mmol/L (3.5-5.1); Protein, Total 6.1 g/dL (5.8-8.1); Sodium 138 mmol/L (136-145)
[2023-02-06 17:48] LABS: CKMB 1.6 ng/mL (0-6.6)
[2023-02-06] MEDS ORDERED: Nitroglycerin 2% Ointment 1 INCH/1 GM Packet ONE ×2 (17:48→17:55)
[2023-02-06] MEDS ORDERED: Furosemide 40 MG/4 ML VIAL ONE (17:48)
[2023-02-06] MEDS ORDERED: Dextrose 5% in Water 1,000 ML IV PRN (18:47)
[2023-02-06] MEDS ORDERED: HumaLOG 300 UNITS/3 ML VIAL SC PRN ×2 (18:47)
[2023-02-06] MEDS ORDERED: Dextrose 50% Abboject 50 ML SYRINGE SLOW IVP PRN (18:47)
[2023-02-06 19:55] LABS: Troponin I 0.079 ng/mL (< 0.028)
[2023-02-06] MEDS ORDERED: Nitroglycerin 0.4 MG TAB (25 Tab Bottle) SL PRN (19:55)
[2023-02-06] MEDS: hydrALAZINE 25 MG TAB PO SCH (21:19)
[2023-02-06] MEDS: Atorvastatin Calcium 40 MG TAB PO SCH (21:20)
[2023-02-06] MEDS: Acetaminophen 325 MG TAB PO PRN (21:20)
[2023-02-06] MEDS: Famotidine 20 MG TAB PO SCH (21:20)
[2023-02-06] MEDS: Heparin 5,000 UNITS/ML VIAL SC SCH (21:58)
[2023-02-07 05:00] LABS: #Monocytes 0.8 thou/uL (0.11-0.59); #Neutrophils 6.3 thou/uL (1.40-6.50); %Basophils 0.2 % (0.0-1.0); %Eosinophils 0.1 % (0.0-10.0); %Monocytes 8.8 % (0.0-10.0); %Neutrophils 74.3 % (42.0-75.0); Mean Corpuscular HGB CONC 31.3 g/dL (32.0-36.0); Mean Corpuscular Hemoglobin 30.7 pg (27.0-31.0); Mean Corpuscular Volume 98.3 fl (78.0-98.0); Mean Platelet Volume 11.1 fL (7.4-10.4); Platelet Count 127 10x3/uL (130-400); RBC Distribution Width 14.4 % (11.5-14.5); Red Blood Cell (RBC) Count 2.93 mill/uL (4.70-6.10); White Blood Cell (WBC) Count 8.5 10x3/uL (4.8-10.8)
[2023-02-07 05:27] LABS: Anion Gap 14 mmol/L (10-20); BUN (Urea Nitrogen) 34 mg/dL (8.4-25.7); Calc. Creatinine Clearance 10 mL/min (70-130); Calcium 10.1 mg/dL (7.8-10.44); Carbon Dioxide 24 mmol/L (23-31); Chloride 103 mmol/L (98-107); Estimated GFR 13; Glucose 131 mg/dL (83-110); Potassium 3.3 mmol/L (3.5-5.1); Sodium 138 mmol/L (136-145)
[2023-02-07] MEDS ORDERED: Furosemide 20 MG/2 ML VIAL SLOW IVP SCH (06:00)
[2023-02-07] MEDS: Amlodipine 5 MG TAB PO SCH (09:56)
[2023-02-07] MEDS: hydrALAZINE 25 MG TAB PO SCH ×3 (09:56→20:58)
[2023-02-07] MEDS: Ferrous Sulfate 325 MG TAB PO SCH (09:57)
[2023-02-07] MEDS: Aspirin 81 mg Enteric Coated Tablet PO SCH (09:57)
[2023-02-07] MEDS: Heparin 5,000 UNITS/ML VIAL SC SCH ×3 (10:30→21:01)
[2023-02-07] MEDS ORDERED: Potassium Chloride 20 MEQ TAB PO SCH (12:00)
[2023-02-07] MEDS: Furosemide 40 MG/4 ML VIAL SLOW IVP SCH (12:56)
[2023-02-07] MEDS: Albumin 25% 25 GM/100 ML BOT IVPB SCH ×3 (12:56→23:49)
[2023-02-07] MEDS: Carvedilol 25 MG TAB PO SCH (18:31)
[2023-02-07] MEDS: Famotidine 20 MG TAB PO SCH (21:00)
[2023-02-07] MEDS: Atorvastatin Calcium 40 MG TAB PO SCH (21:00)
[2023-02-07] MEDS: Acetaminophen 325 MG TAB PO PRN (21:08)
[2023-02-08 05:17] LABS: #Eosinphils 0.1 thou/uL (0.0-0.7); #Monocytes 0.6 thou/uL (0.11-0.59); #Neutrophils 3.2 thou/uL (1.40-6.50); %Basophils 0.4 % (0.0-1.0); %Eosinophils 1.6 % (0.0-10.0); %Lymphocytes 23.2 % (21.0-51.0); %Monocytes 11.2 % (0.0-10.0); %Neutrophils 63.2 % (42.0-75.0); Hemoglobin 7.8 g/dL (14.0-18.0); Mean Corpuscular HGB CONC 31.8 g/dL (32.0-36.0); Mean Corpuscular Hemoglobin 31.3 pg (27.0-31.0); Mean Corpuscular Volume 98.4 fl (78.0-98.0); Mean Platelet Volume 11.3 fL (7.4-10.4); RBC Distribution Width 14.4 % (11.5-14.5); Red Blood Cell (RBC) Count 2.49 mill/uL (4.70-6.10); White Blood Cell (WBC) Count 5.1 10x3/uL (4.8-10.8)
[2023-02-08 05:34] LABS: Platelet Count 104 10x3/uL (130-400)
[2023-02-08 05:40] LABS: Anion Gap 13 mmol/L (10-20); BUN (Urea Nitrogen) 35 mg/dL (8.4-25.7); Calc. Creatinine Clearance 10 mL/min (70-130); Calcium 9.9 mg/dL (7.8-10.44); Carbon Dioxide 26 mmol/L (23-31); Chloride 101 mmol/L (98-107); Estimated GFR 12; Glucose 92 mg/dL (83-110); Potassium 3.4 mmol/L (3.5-5.1); Sodium 137 mmol/L (136-145)
[2023-02-08] MEDS: Albumin 25% 25 GM/100 ML BOT IVPB SCH ×4 (05:53→23:31)
[2023-02-08] MEDS: Furosemide 40 MG/4 ML VIAL SLOW IVP SCH ×2 (05:54→15:26)
[2023-02-08] MEDS ORDERED: Potassium Chloride 20 MEQ TAB PO SCH (08:00)
[2023-02-08] MEDS: Carvedilol 25 MG TAB PO SCH ×2 (09:07→17:37)
[2023-02-08] MEDS: Amlodipine 5 MG TAB PO SCH (09:07)
[2023-02-08] MEDS: Aspirin 81 mg Enteric Coated Tablet PO SCH (09:07)
[2023-02-08] MEDS: Ferrous Sulfate 325 MG TAB PO SCH (09:08)
[2023-02-08] MEDS: hydrALAZINE 25 MG TAB PO SCH ×3 (09:08→20:28)
[2023-02-08] MEDS: Heparin 5,000 UNITS/ML VIAL SC SCH ×3 (09:10→20:34)
[2023-02-08] MEDS ORDERED: Cipro 250 MG TAB PO SCH (10:30)
[2023-02-08] MEDS: Atorvastatin Calcium 40 MG TAB PO SCH (20:27)
[2023-02-08] MEDS: Famotidine 20 MG TAB PO SCH (20:27)
[2023-02-09] MEDS: Albumin 25% 25 GM/100 ML BOT IVPB SCH (05:35)
[2023-02-09] MEDS: Furosemide 40 MG/4 ML VIAL SLOW IVP SCH ×2 (05:35→13:28)
[2023-02-09 09:06] LABS: Anion Gap 15 mmol/L (10-20); BUN (Urea Nitrogen) 39 mg/dL (8.4-25.7); Calc. Creatinine Clearance 8 mL/min (70-130); Calcium 10.6 mg/dL (7.8-10.44); Carbon Dioxide 28 mmol/L (23-31); Chloride 99 mmol/L (98-107); Estimated GFR 12; Glucose 172 mg/dL (83-110); Potassium 3.7 mmol/L (3.5-5.1); Sodium 138 mmol/L (136-145)
[2023-02-09] MEDS ORDERED: Polyethylene Glycol 3350 17 GM Packet PO PRN (09:13)
[2023-02-09] MEDS: Amlodipine 5 MG TAB PO SCH (09:30)
[2023-02-09] MEDS: Carvedilol 25 MG TAB PO SCH (09:30)
[2023-02-09] MEDS: Aspirin 81 mg Enteric Coated Tablet PO SCH (09:30)
[2023-02-09] MEDS: hydrALAZINE 25 MG TAB PO SCH ×3 (09:31→20:45)
[2023-02-09] MEDS: Carvedilol 6.25 MG TAB PO SCH ×3 (09:31→20:46)
[2023-02-09] MEDS: Ferrous Sulfate 325 MG TAB PO SCH (09:32)
[2023-02-09] MEDS ORDERED: Carvedilol 25 MG TAB PO SCH (15:00)
[2023-02-09] MEDS: Famotidine 20 MG TAB PO SCH (20:45)
[2023-02-09] MEDS: Atorvastatin Calcium 40 MG TAB PO SCH (20:46)
[2023-02-10 05:11] LABS: #Eosinphils 0.1 thou/uL (0.0-0.7); #Monocytes 0.7 thou/uL (0.11-0.59); #Neutrophils 3.5 thou/uL (1.40-6.50); %Basophils 0.4 % (0.0-1.0); %Eosinophils 2.6 % (0.0-10.0); %Lymphocytes 18.4 % (21.0-51.0); %Monocytes 12.7 % (0.0-10.0); %Neutrophils 65.3 % (42.0-75.0); Hemoglobin 8.1 g/dL (14.0-18.0); Mean Corpuscular HGB CONC 32.4 g/dL (32.0-36.0); Mean Corpuscular Hemoglobin 31.4 pg (27.0-31.0); Mean Corpuscular Volume 96.9 fl (78.0-98.0); Mean Platelet Volume 11.1 fL (7.4-10.4); Platelet Count 122 10x3/uL (130-400); Red Blood Cell (RBC) Count 2.58 mill/uL (4.70-6.10); White Blood Cell (WBC) Count 5.4 10x3/uL (4.8-10.8)
[2023-02-10 05:27] LABS: Anion Gap 14 mmol/L (10-20); BUN (Urea Nitrogen) 45 mg/dL (8.4-25.7); Calc. Creatinine Clearance 9 mL/min (70-130); Calcium 10.6 mg/dL (7.8-10.44); Carbon Dioxide 29 mmol/L (23-31); Chloride 97 mmol/L (98-107); Estimated GFR 12; Glucose 113 mg/dL (83-110); Potassium 3.3 mmol/L (3.5-5.1); Sodium 137 mmol/L (136-145)
[2023-02-10] MEDS: Furosemide 40 MG/4 ML VIAL SLOW IVP SCH ×2 (05:39→14:29)
[2023-02-10] MEDS ORDERED: Cipro 250 MG TAB PO SCH (06:00)
[2023-02-10] MEDS ORDERED: Potassium Chloride 20 MEQ TAB PO SCH (08:00)
[2023-02-10] MEDS: Amlodipine 5 MG TAB PO SCH (09:14)
[2023-02-10] MEDS: Ferrous Sulfate 325 MG TAB PO SCH (09:15)
[2023-02-10] MEDS: Aspirin 81 mg Enteric Coated Tablet PO SCH (09:15)
[2023-02-10] MEDS: Carvedilol 6.25 MG TAB PO SCH ×3 (09:15→20:37)
[2023-02-10] MEDS: hydrALAZINE 25 MG TAB PO SCH ×3 (09:16→20:40)
[2023-02-10] MEDS: Famotidine 20 MG TAB PO SCH (20:37)
[2023-02-10] MEDS: Atorvastatin Calcium 40 MG TAB PO SCH (20:37)
[2023-02-11] MEDS: Furosemide 40 MG/4 ML VIAL SLOW IVP SCH (06:18)
[2023-02-11] MEDS: Amlodipine 5 MG TAB PO SCH (09:47)
[2023-02-11] MEDS: Aspirin 81 mg Enteric Coated Tablet PO SCH (09:47)
[2023-02-11] MEDS: Ferrous Sulfate 325 MG TAB PO SCH (09:48)
[2023-02-11] MEDS: Carvedilol 6.25 MG TAB PO SCH (09:48)
[2023-02-11] MEDS: hydrALAZINE 25 MG TAB PO SCH (09:48)
[2023-02-11 10:02] VITALS: BMI 18.9
[2023-02-11 10:30] VITALS: BP 169/72; TEMP 97.7
[2023-02-14] MEDS ORDERED: EPOETIN ALFA-EPBX (ESRD) 10,000 UNITS/ML VIAL SC SCH (09:00)
== END 2023-02-11 11:44 | disposition hospice, home (50) | DRG 291 ==
LOC: ERS 15:49 → 2NO 18:02
PROVIDERS: ADMIT Internal Medicine; ATTEND Internal Medicine
DX: I13.0 Hypertensive heart and chronic kidney disease with heart failure and stage 1 through stage 4 chronic kidney disease, or unspecified chronic kidney disease (principal); I50.43 Acute on chronic combined systolic (congestive) and diastolic (congestive) heart failure; J96.01 Acute respiratory failure with hypoxia; N17.9 Acute kidney failure, unspecified; N18.4 Chronic kidney disease, stage 4 (severe); E11.22 Type 2 diabetes mellitus with diabetic chronic kidney disease; E11.319 Type 2 diabetes mellitus with unspecified diabetic retinopathy without macular edema; I25.10 Atherosclerotic heart disease of native coronary artery without angina pectoris; E87.6 Hypokalemia; D63.1 Anemia in chronic kidney disease; D69.6 Thrombocytopenia, unspecified; Z95.1 Presence of aortocoronary bypass graft; Z89.512 Acquired absence of left leg below knee; Z89.511 Acquired absence of right leg below knee; Z95.810 Presence of automatic (implantable) cardiac defibrillator
CPT/HCPCS: 36415; 36416; 71045; 80048; 80053; 82553; 83605; 83880; 84484; 85025; 85610; 85730; 87040; 93005; 93306; 96374; J1644; J1815; J1940; P9047